=== PATIENT | female | born 1940 | race Caucasian/White ===

== ENCOUNTER 2021-10-29 12:00 | Emergency (ER) | payer MEDICARE, BC ==
[~2021-10-29] VITALS: Ht 175.3 cm; Wt 96.2 kg
[~2021-10-29 12:00] MED LIST: AMOXICILLIN875 MG PO; BYSTOLIC 5 MG5 MG PO; CARAFATE1 GM/10 ML PO; CRESTOR5 MG PO; FLONASE 0.05%50 MCG NS; PROTONIX40 M2 PO; SYNTHROID125 MCG PO; ZANTAC 150MG T150 M1 PO
[2021-10-29 12:19] LABS: URINE BILIRUBIN NEGATIVE (Negative); URINE BLOOD 3+ (Negative); URINE CLARITY SL CLOUDY; URINE COLOR YELLOW; URINE GLUCOSE-RANDOM NEGATIVE (Negative); URINE KETONES NEGATIVE (Negative); URINE PROTEIN 1+ (Negative); URINE SPECIFIC GRAVITY 1.025 (1.005-1.030); URINE UROBILINOGEN 0.2 E.U./dl (0.2-1.0)
[2021-10-29 12:20] LABS: URINE LEUKOCYTES-REFLEX 2+ (Negative); URINE NITRITE-REFLEX POSITIVE (Negative)
[2021-10-29 12:27] LABS: SQUAMOUS 4-10 Moderate /LPF (0-3); URINE WBC-REFLEX >25 Many /HPF (0-5)
[2021-10-29 12:28] LABS: BACTERIA-REFLEX >30 Many /HPF (None Seen); CASTS None Seen /LPF (None Seen); CRYSTALS None Seen /LPF (None Seen); MUCUS 0-3 Light strn/LPF (None Seen)
[2021-10-29 13:26] LABS: HEMATOCRIT 43.4 % (37.0-47.0); HEMOGLOBIN 14.3 gm/dL (12.0-15.0); MCH 29.5 pg (26.0-34.0); MCHC 32.9 g/dL (28.0-37.0); MCV 89.6 fL (80.0-100.0); MPV 8.6 fl. (7.2-11.1); NUCLEATED RBCS 0 /100WBC; PLATELET COUNT* 182 thou/uL (150-400); RBC 4.85 mil/uL (4.20-5.00); RDW-CV 13.8 % (10.5-14.5); WBC 24.5 thou/uL (4.0-11.0)
[2021-10-29 13:44] LABS: CREATININE 0.8 mg/dL (0.6-1.3); POTASSIUM 4.3 mmol/L (3.5-5.1)
[2021-10-29 13:52] LABS: ALBUMIN 3.7 g/dL (3.4-5.0); TOTAL BILIRUBIN 0.6 mg/dL (<0.1-1.0); TOTAL PROTEIN 6.9 g/dL (6.4-8.2)
[2021-10-29] MEDS ORDERED: PYRIDIUM200 MG PO (13:54)
[2021-10-29] MEDS ORDERED: MACROBID 100 M100 M1 PO (13:54)
[2021-10-29 14:09] LABS: ABSOLUTE LYMPHOCYTES 15.7 thou/uL (0.8-5.3); ABSOLUTE MONOCYTES 0.7 thou/uL (0.0-1.2); ABSOLUTE NEUTROPHILS 8.1 thou/uL (1.6-8.1); ATYPICAL LYMPHS 13 %; PLATELET ESTIMATE ADEQUATE
[2021-10-29 14:10] VITALS: BP 152/87
== END 2021-10-29 14:10 | disposition home or self-care (01) ==
LOC: M.ERS 12:00
PROVIDERS: Emergency Medicine Emergency Medical Services; Student in an Organized Health Care Education/Training Program
DX: N39.0 Urinary tract infection, site not specified (principal); J45.909 Unspecified asthma, uncomplicated; K21.9 Gastro-esophageal reflux disease without esophagitis; I10 Essential (primary) hypertension; E78.00 Pure hypercholesterolemia, unspecified; Z90.710 Acquired absence of both cervix and uterus; Z90.89 Acquired absence of other organs; Z79.899 Other long term (current) drug therapy